=== PATIENT | female | born 1990 | race Caucasian/White ===

== ENCOUNTER → 2020-03-10 | Outpatient (CLI) | payer BC ==
[2020-03-10 13:40] VITALS: BP 190/88; PULSE 114; RESP 18; TEMP 98.4; BMI 41.5
--- NOTE | 2020-03-10 14:23 | P.HPBAR ---
Bariatric H&P - History & Physicial H&P Date: 03/10/20 History & Physicial: Visit/CC: initial visit Patient initial contact: Initial weight: Initial weight in pounds: Height: 5 ft 8 in Initial BMI: Last weight: Current weight: 123.831 kg Current weight in pounds: 273.00 Current BMI: 41.5 [place] body weight (based on NIH guidelines): 63.503 kg Excess body weight loss: The patient is a 29 year-old F who presents for Bariatric Assessment. DATE OF SERVICE: 03/10/2020 REASON FOR CONSULTATION: Initial bariatric evaluation. HISTORY OF PRESENT ILLNESS: Carolin Mir is a 29-year-old female who comes in with lifelong morbid obesity. She is looking into the sleeve gastrectomy. She is under medical supervised weight loss and started 2 to 3 months ago. She is looking into weight loss surgery. She has tried Adipex, qseamia, topamax. She lost 50+ pounds. Her highest weight is present, 273 pounds. She reports trouble with weight loss in her family including mother and sister. None of her family members has weight loss surgery. She has lower back pain. She has no troubles with sleep. She denies reports of hypertension. She has anxiety. She still has her gallbladder. Her mother had her gallbladder removed. She denies moderate reflux disease and has heartburn and takes a prescription. She takes tums. She denies easy bruising. No reports of blood clots. Her dream is to get to 170 pounds. She had 2 sections. She vaps nicotine. She presents to me first time in consultation for weight loss options. At height of 5 feet 8 inches, her ideal body weight is 163 pounds. She comes in 272 pounds. Her body mass index is 41.5. She is 109 pounds overweight. PAST MEDICAL HISTORY: 1. Morbid obesity due to excess calories 2. Body mass index of 41.5, initial 3. Anxiety 4. Depressive disorder 5. Gastroesophageal reflux disease PAST SURGICAL HISTORY: 1. section HOME MEDICATIONS: Home Medications Medication Instructions Recorded Confirmed Ergocalciferol (Vitamin D2) 1,200 mg PO DAILY 02/13/20 03/11/20 [Vitamin D2] Loratadine [Claritin] 10 mg PO DAILY 02/13/20 03/11/20 Multivitamin [Multivitamins Adult 1 tab PO DAILY 02/13/20 03/11/20 Gummies] Venlafaxine HCl [Effexor XR] 150 mg PO DAILY 02/13/20 03/11/20 Venlafaxine HCl [Effexor] 75 mg PO HS 02/13/20 03/11/20 busPIRone HCL [Buspar] 7.5 mg PO BID 02/13/20 03/11/20 Famotidine [Pepcid] 20 mg PO BID 03/11/20 03/11/20 ALLERGIES: Allergies Allergy/AdvReac Type Severity Reaction Status Date / Time metronidazole [From Flagyl] Allergy Rash/Hives Verified 03/11/20 09:05 SOCIAL HISTORY: Past tobacco use. FAMILY HISTORY: No family history of ulcerative colitis disease or Crohn's disease. Family history of morbid obesity. No lupus in the family. No reports of stomach or esophageal cancer. REVIEW OF ORGAN SYSTEMS: CONSTITUTIONAL: At height of 5 feet 8 inches, her ideal body weight is 163 pounds. She comes in 272 pounds. Her body mass index is 41.5. She is 109 pounds overweight. HEENT: Denies any active troubles with vision or hearing. ENDOCRINE: No diabetes. No hypothyroidism. CARDIOVASCULAR: Denies past reports of palpitations or heart attacks or chest pain. RESPIRATORY: Denies daytime somnolence. Denies asthma. GASTROINTESTINAL: Denies any bright red blood per rectum. No diarrhea. No constipation. Gastroesophageal reflux disease. MUSCULOSKELETAL: Has lower back pain and joint pain. Has osteoarthritis of the knees. NEURO: No headaches. No seizure disorders. PSYCH: Has depression. No suicidal ideation. RHEUMATOLOGIC: No lupus. No rheumatoid arthritis. HEMATOLOGIC: Denies any abnormal bleeding or bruising. No personal history of DVTs. SKIN: No rash. No skin cancer. PHYSICAL EXAM: VITAL SIGNS: Height 5 foot 8 inches, weight 272 pounds. BMI 41.5 Vital Signs Temp 98.4 F 03/10/20 13:29 Pulse 114 H 03/10/20 13:29 Resp 18 03/10/20 13:29 BP 190/88 03/10/20 13:29 Pulse Ox GENERAL: Well-developed in no acute distress. HEENT: No scleral icterus. Extraocular movements grossly intact. Hears conversational speech. No nasal drainage. NECK: Supple without lymphadenopathy. CHEST: Nonlabored respirations with equal bilateral excursions. CARDIOVASCULAR: Tachycardia. Distal 2+ pulses. ABDOMEN: Obese, soft, nontender, nondistended. MUSCULOSKELETAL: No clubbing, cyanosis. NEURO: No focal or lateralizing signs. Cranial nerves 2 through 12 grossly within normal limits. PSYCH: Appropriate affect. Alert and oriented to person, place and time. SKIN: Good skin turgor. Well perfused. ASSESSMENT: 1. Morbid obesity due to excess calories 2. Body mass index of 41.5, initial 3. Anxiety 4. Depressive disorder 5. Gastroesophageal reflux disease PLAN: 1. Surgical options including a band, gastric bypass, sleeve gastrectomy were described in detail. Alternatives such as gastric balloon including duodenal switch were described. She is looking into the sleeve gastrectomy. 2. The [place] [facility]ariat[facility] collaborative data and outcomes calculator were described with surgical options. 3. Recommend a bariatric metabolic panel to evaluate for micro- including macronutrient deficiencies. 4. For history of daytime somnolence, recommend evaluation and treatment for sleep apnea. 5. Dietary surveillance and counseling was reviewed. Increased protein intake over 65 grams daily advised. 6. Will need cardiac risk assessment. 7. Recommend medical risk assessment. 8. Psych assessment per insurance guidelines. 9. Recommend upper endoscopy. 10. Recommend 12-lead EKG. 11. Will need complete nicotine avoidance. Thank you for this consultation. Past Medical History Past Medical History: GERD/Reflux Additional Past Medical History / Comment(s): PCOS History of Any Multi-Drug Resistant Organisms: None Reported Past Surgical History: Section Additional Past Surgical History / Comment(s): c section x 2 Past Anesthesia/Blood Transfusion Reactions: No Reported Reaction Past Psychological History: Anxiety, Depression Smoking Status: Vaper Past Alcohol Use History: Occasional Past Drug Use History: None Reported Surgical - Exam Vital Signs Temp Pulse Resp BP 98.4 F 114 H 18 190/88 03/10/20 13:29 03/10/20 13:29 03/10/20 13:29 03/10/20 13:29 Results - Labs 03/10/20 14:59 03/10/20 14:59 Bariatric Checklist Checklist: Plan: Checklist: EGD: 1. Hiatal hernia: 2. H. Pylori: HgbA1c: Vitamin D: Smoking: Primary care physician referral: Dr. Alex Pisano Psychiatry clearance: Cardiology clearance: Sleep study: Diet journal: VTE risk score: VTE risk level: Rehab needs at discharge:
[2020-03-10 15:25] LABS: HGB 13.9 gm/dL (11.4-16.0); MCH 29.6 pg (25.0-35.0); MCHC 33.1 g/dL (31.0-37.0); MCV 89.4 fL (80.0-100.0); Mean Platelet Volume 7.8; Platelet Count 343 k/uL (150-450); RBC 4.69 m/uL (3.80-5.40); RDW 12.6 % (11.5-15.5); WBC 12.4 k/uL (3.8-10.6)
[2020-03-10 18:50] LABS: % Iron Saturation 12.94 (12.00-45.00); African American GFR (CKD) 149.5 (60.0-200.0); Albumin 4.5 g/dL (3.80-4.90); Albumin/Globulin Ratio 1.8 (1.60-3.17); Anion Gap 7.1 mmol/L (4.00-12.00); Calcium 9.6 mg/dL (8.7-10.3); Carbon Dioxide 27.9 mmol/L (21.6-31.8); Chol/HDL Ratio 3.05; Globulin 2.5 g/dL (1.6-3.3); LDL Cholesterol,Calculated 86.4 mg/dL (0.0-131.0); Magnesium 2.1 mg/dL (1.5-2.4); Phosphorus 2.9 mg/dL (2.4-5.1); Total Bilirubin 0.2 mg/dL (0.3-1.2); VLDL Calculation 34.6 mg/dL (5.00-40.00)
[2020-03-10 18:58] LABS: Ferritin 24.7 ng/mL (10.0-291.0)
[2020-03-10 19:20] LABS: Hemoglobin A1C 5.2 % (4.0-6.0)
[2020-03-10 19:43] LABS: Folate, Serum 18.7 ng/mL
[2020-03-11 03:29] LABS: INR <0.90 (0.90-1.11); Partial Thromboplastin Time 29.3 sec (23.5-31.0); Prothrombin Time <9.9 sec (9.9-11.9)
[2020-03-11 14:09] LABS: Zinc, Serum 52 ug/dL (60-130)
[2020-03-12 06:15] LABS: Vit B1(Thiamine) 74 ug/L (38-122)
[2020-03-12 06:19] LABS: Vitamin A 50 ug/dL (38-106)
[2020-03-13 00:56] LABS: Selenium 149 mcg/L (63-160)
== END | disposition home or self-care (01) ==
LOC: BARWHC3 13:23
PROVIDERS: ATTEND Surgery Plastic and Reconstructive Surgery
DX: E66.01 Morbid (severe) obesity due to excess calories (principal); F41.8 Other specified anxiety disorders; K21.9 Gastro-esophageal reflux disease without esophagitis; Z68.41 Body mass index [BMI] 40.0-44.9, adult; Z87.891 Personal history of nicotine dependence; Z83.49 Family history of other endocrine, nutritional and metabolic diseases; Z88.8 Allergy status to other drugs, medicaments and biological substances; Z79.899 Other long term (current) drug therapy; E89.1 Postprocedural hypoinsulinemia; D50.8 Other iron deficiency anemias; K90.89 Other intestinal malabsorption; K74.1 Hepatic sclerosis; N19 Unspecified kidney failure; K50.90 Crohn's disease, unspecified, without complications
CPT/HCPCS: 36415; 80053; 80061; 82306; 82525; 82607; 82728; 82746; 83036; 83540; 83550; 83735; 83970; 84100; 84134; 84255; 84425; 84443; 84590; 84630; 85027; 85610; 85730; 93005; 99201

== ENCOUNTER 2020-06-09 08:25 | Day surgery (SDC) | payer BC ==
[2020-06-07 13:57] VITALS: BMI 41.0
[~2020-06-09 08:25] MED LIST: LACTATED RINGERS 1,000 ML IV SCH; LIDOCAINE 1% (10MG/ML) FOR IV START INTRADERMA PRN
--- NOTE | 2020-06-09 08:36 | P.GSHP ---
History of Present Illness H&P Date: 06/09/20 CHIEF COMPLAINT: GERD HISTORY OF PRESENT ILLNESS: The patient is a 29-year-old female who presents reports gastroesophageal reflux disease. Upper endoscopy was offered for further evaluation and management. PAST MEDICAL HISTORY: Please see list. PAST SURGICAL HISTORY: Please see list. MEDICATIONS: Please see list. ALLERGIES: Please see list. SOCIAL HISTORY: No illicit drug use FAMILY HISTORY: No reports of Crohn disease or ulcerative colitis. REVIEW OF ORGAN SYSTEMS: CONSTITUTIONAL: No reports of fevers or chills. GI: Denies any blood in stools or constipation. PHYSICAL EXAM: VITAL SIGNS: Stable GENERAL: Well-developed and pleasant in no acute distress. HEENT: No scleral icterus. Extraocular movements grossly intact. Moist buccal mucosa. NECK: Supple without lymphadenopathy. CHEST: Unlabored respirations. Equal bilateral excursions. CARDIOVASCULAR: Regular rate and rhythm. Distal 2+ pulses. ABDOMEN: Soft, nondistended. MUSCULOSKELETAL: No clubbing, cyanosis, or edema. ASSESSMENT: 1. Gastroesophageal reflux disease PLAN: 1. Recommend proceeding with an upper endoscopy Past Medical History Past Medical History: GERD/Reflux Additional Past Medical History / Comment(s): PCOS History of Any Multi-Drug Resistant Organisms: None Reported Past Surgical History: Section Additional Past Surgical History / Comment(s): c section x 2 Past Anesthesia/Blood Transfusion Reactions: No Reported Reaction Smoking Status: Vaper - Past Family History Mother Family Medical History: No Reported History, Cancer Additional Family Medical History / Comment(s): breast Father Family Medical History: Cancer Additional Family Medical History / Comment(s): brain/lung Medications and Allergies Home Medications Medication Instructions Recorded Confirmed Type Loratadine [Claritin] 10 mg PO DAILY 02/13/20 06/07/20 History Multivitamin [Multivitamins Adult 1 tab PO DAILY 02/13/20 06/07/20 History Gummies] Venlafaxine HCl [Effexor XR] 150 mg PO DAILY 02/13/20 06/07/20 History Venlafaxine HCl [Effexor] 75 mg PO HS 02/13/20 06/07/20 History busPIRone HCL [Buspar] 15 mg PO BID 02/13/20 06/07/20 History Birthcontrol 1 tab PO 1200 06/07/20 06/07/20 History Cholecalciferol (Vitamin D3) 250 mcg PO DAILY 06/07/20 06/07/20 History [Vitamin D3 (5000 Iu)] hydrOXYzine pamoate [Vistaril] 25 mg PO Q8H PRN 06/07/20 06/07/20 History Allergies Allergy/AdvReac Type Severity Reaction Status Date / Time metronidazole [From Flagyl] Allergy Rash/Hives Verified 06/07/20 12:24
[2020-06-09 08:51] VITALS: TEMP 96.9
[2020-06-09] MEDS ORDERED: PROPOFOL 10 MG/ML 20 ML VIAL IV ONE (09:13)
--- NOTE | 2020-06-09 09:28 | P.PCN ---
Date of Procedure: 06/09/20 Description of Procedure: PREOPERATIVE DIAGNOSIS: Gastroesophageal reflux disease. Morbid obesity. POSTOPERATIVE DIAGNOSIS: Morbid obesity. Gastritis. Gastroesophageal reflux disease with erosive esophagitis Duodenitis Hiatal hernia OPERATION: Esophagogastroduodenoscopy with biopsies along antrum. SURGEON: Porsche Gonzalez MD ANESTHESIA: MAC. INDICATIONS: The patient is a 29-year-old female who presents with a history of reflux disease. Benefits and risks of the procedure were described. Informed consent was obtained. DESCRIPTION: The patient was brought into the endoscopy suite and laid in the left lateral decubitus position. An Olympus gastroscope was passed along the posterior oropharynx down to the distal esophagus where the squamocolumnar junction was encountered at 37 cm from the incisors. The stomach was entered and no bile reflux was found. Additional findings are listed below. Biopsies with cold forceps were obtained of the antrum. The first through third portion of the duodenum was examined and remarkable for duodenitis. Retroflexion of the scope confirmed Hill grade 3 lower esophageal valve. The squamocolumnar junction demonstrated LA grade B erosive esophagitis. The stomach was desufflated. The patient tolerated the procedure well. FINDINGS: Squamocolumnar junction 37 cm from the incisors. Diaphragmatic hiatus at 38 cm. Hiatal hernia, 1 cm, sliding type Hill grade 3 lower esophageal valve. LA grade B erosive esophagitis. Active duodenitis. Chronic gastritis RECOMMENDATIONS: Upper endoscopy as needed. Plan - Discharge Summary Discharge Rx Participant: No New Discharge Prescriptions: Continue Venlafaxine HCl [Effexor XR] 150 mg PO DAILY Venlafaxine HCl [Effexor] 75 mg PO HS busPIRone HCL [Buspar] 15 mg PO BID Multivitamin [Multivitamins Adult Gummies] 1 tab PO DAILY Loratadine [Claritin] 10 mg PO DAILY Cholecalciferol (Vitamin D3) [Vitamin D3 (5000 Iu)] 250 mcg PO DAILY hydrOXYzine pamoate [Vistaril] 25 mg PO Q8H PRN PRN Reason: Anxiety Birthcontrol 1 tab PO 1200 Discharge Medication List Loratadine [Claritin] 10 mg PO DAILY 02/13/20 [History] Multivitamin [Multivitamins Adult Gummies] 1 tab PO DAILY 02/13/20 [History] Venlafaxine HCl [Effexor XR] 150 mg PO DAILY 02/13/20 [History] Venlafaxine HCl [Effexor] 75 mg PO HS 02/13/20 [History] busPIRone HCL [Buspar] 15 mg PO BID 02/13/20 [History] Birthcontrol 1 tab PO 1200 06/07/20 [History] Cholecalciferol (Vitamin D3) [Vitamin D3 (5000 Iu)] 250 mcg PO DAILY 06/07/20 [History] hydrOXYzine pamoate [Vistaril] 25 mg PO Q8H PRN 06/07/20 [History] [facility] up [facility]ment[facility] [place] [facility] Patient Instructions/Handouts: Gastritis (DC), Duodenitis (DC), Diet for Stomach Ulcers and Gastritis (ED), Gastroesophageal Reflux Disease (DC) Discharge Disposition: HOME SELF-CARE
[2020-06-09 09:32] VITALS: PULSE 90; RESP 18
[2020-06-09 10:06] VITALS: BP 146/92
== END 2020-06-09 10:15 | disposition home or self-care (01) ==
LOC: ORWHC2ENDO 08:25
PROVIDERS: ATTEND Surgery Plastic and Reconstructive Surgery
DX: K29.50 Unspecified chronic gastritis without bleeding (principal); K29.80 Duodenitis without bleeding; K44.9 Diaphragmatic hernia without obstruction or gangrene; K21.00 Gastro-esophageal reflux disease with esophagitis, without bleeding; K22.10 Ulcer of esophagus without bleeding; E66.01 Morbid (severe) obesity due to excess calories; Z79.899 Other long term (current) drug therapy; Z88.1 Allergy status to other antibiotic agents; Z98.891 History of uterine scar from previous surgery; Z87.891 Personal history of nicotine dependence; E28.2 Polycystic ovarian syndrome; Z80.3 Family history of malignant neoplasm of breast; Z80.1 Family history of malignant neoplasm of trachea, bronchus and lung; Z80.8 Family history of malignant neoplasm of other organs or systems; Z68.41 Body mass index [BMI] 40.0-44.9, adult
CPT/HCPCS: 81025; 88305; 43239; J2704

== ENCOUNTER → 2020-06-23 | Outpatient (CLI) | payer BC ==
[2020-06-23 13:58] VITALS: BP 160/94; PULSE 103; RESP 16; TEMP 98; BMI 41.8
--- NOTE | 2020-06-23 14:32 | P.PN ---
Subjective Progress Note Date: 06/23/20 She comes in following her upper endoscopy. She is tolerating Omeprazole. She is no longer getting heartburn. Risks to sleeve described. Willingness to take Omeprazole. Scope reviewed. EGD. Zinc for correction. Vitamin D. Objective - Vital Signs Vital signs: Vital Signs Temp 98 F 06/23/20 13:55 Pulse 103 H 06/23/20 13:55 Resp 16 06/23/20 13:55 BP 160/94 06/23/20 13:55 Pulse Ox Intake & Output 06/22/20 06/23/20 06/23/20 18:59 06:59 18:59 Weight 124.738 kg
== END ==
LOC: BARWHC3 13:13
PROVIDERS: ATTEND Surgery Plastic and Reconstructive Surgery
DX: E66.01 Morbid (severe) obesity due to excess calories (principal); Z68.41 Body mass index [BMI] 40.0-44.9, adult; F17.290 Nicotine dependence, other tobacco product, uncomplicated
CPT/HCPCS: 99211

== ENCOUNTER → 2020-07-19 | Outpatient (CLI) | payer BC ==
[2020-07-19 13:19] VITALS: BMI 42.7
== END ==
LOC: BARWHC3 08:43
PROVIDERS: ATTEND Surgery Plastic and Reconstructive Surgery
DX: E66.01 Morbid (severe) obesity due to excess calories (principal); Z71.3 Dietary counseling and surveillance; Z68.41 Body mass index [BMI] 40.0-44.9, adult
CPT/HCPCS: 97804

== ENCOUNTER → 2020-08-30 | Outpatient (CLI) | payer BC ==
[2020-08-30 10:05] LABS: Basophils % (A) 0 %; Eosinophils # (A) 0.1 k/uL (0-0.7); Eosinophils % (A) 1 %; Lymphocytes # (A) 1.7 k/uL (1.0-4.8); Lymphocytes % (A) 18 %; MCH 29.2 pg (25.0-35.0); MCHC 33.3 g/dL (31.0-37.0); MCV 87.9 fL (80.0-100.0); Mean Platelet Volume 7.8; Monocytes # (A) 0.5 k/uL (0-1.0); Monocytes % (A) 6 %; Neutrophils # (A) 7.1 k/uL (1.3-7.7); Neutrophils % (A) 74 %; Platelet Count 319 k/uL (150-450); RBC 4.78 m/uL (3.80-5.40); RDW 13.1 % (11.5-15.5); WBC 9.5 k/uL (3.8-10.6)
[2020-08-30 10:14] LABS: ALT 33 U/L (4-34); AST 29 U/L (14-36); African American GFR (CKD) >90 (>60 ml/min/1.73 sqM); Albumin 4.5 g/dL (3.5-5.0); Alkaline Phosphatase 92 U/L (38-126); Anion Gap 9 mmol/L; Blood Urea Nitrogen 14 mg/dL (7-17); Calcium 9.8 mg/dL (8.4-10.2); Carbon Dioxide 30 mmol/L (22-30); Chloride 102 mmol/L (98-107); Glucose 103 mg/dL (74-99); Non-African American GFR(CKD) >90 (>60 ml/min/1.73 sqM); Potassium 4.3 mmol/L (3.5-5.1); Sodium 141 mmol/L (137-145); Total Bilirubin 0.4 mg/dL (0.2-1.3); Total Protein 7.6 g/dL (6.3-8.2)
[2020-09-02 08:09] LABS: Anabasine Urine <2.0 ng/mL (<2.0)
== END | disposition home or self-care (01) ==
LOC: LABPAT 09:03
PROVIDERS: ATTEND Surgery Plastic and Reconstructive Surgery
DX: Z01.812 Encounter for preprocedural laboratory examination (principal); Z71.51 Drug abuse counseling and surveillance of drug abuser
CPT/HCPCS: 36415; 80053; 80323; 85025; 86850; 86900; 86901

== ENCOUNTER 2020-09-06 07:30 | Inpatient (IN) | payer BC ==
[~2020-09-06 07:30] MED LIST changes: +CHLORHEXIDINE GLUCONATE 15 ML CUP MUCOUS MEM PRN; +DEXAMETHASONE SOD PHOSPHATE 4 MG/ML 1 ML VIAL IV ONE; +ENOXAPARIN 40 MG/0.4 ML SYRINGE SQ PRN; -LACTATED RINGERS 1,000 ML IV SCH; -LIDOCAINE 1% (10MG/ML) FOR IV START INTRADERMA PRN; +MIDAZOLAM 2 MG/2 ML VIAL IV PRN; +ONDANSETRON 4 MG/2 ML VIAL IVP ONE; +PANTOPRAZOLE 40 MG/10 ML VIAL IVP PRN; +SCOPOLAMINE 1.5MG/72HR PATCH TRANSDERM ONE; +ceFAZolin 3 GM in SODIUM CHLORIDE 0.9% 100 ML IVPB PRN
[2020-09-06] MEDS ORDERED: ACETAMINOPHEN TAB 500 MG TAB PO PRN (08:19)
[2020-09-06] MEDS ORDERED: SCOPOLAMINE 1.5MG/72HR PATCH TRANSDERM PRN (08:19)
[2020-09-06] MEDS ORDERED: GABAPENTIN 300 MG CAP PO PRN (08:19)
--- NOTE | 2020-09-06 08:19 | P.GSHP ---
History of Present Illness H&P Date: 09/06/20 CHIEF COMPLAINT: Morbid obesity HISTORY OF PRESENT ILLNESS: Carolin Mir is a 29-year-old female who comes in with lifelong morbid obesity. She is looking into the sleeve gastrectomy. She has completed medical supervised weight loss. She is looking for surgical weight loss. At height of 5 feet 8 inches, her ideal body weight is 163 pounds. Highest 273 pounds, BMI 41.8. She comes in 274 pounds from 272 pounds, 4 months ago. She has gained 2 pounds in 4 months. Her body mass index is 41.8. She is 111 pounds overweight. PAST MEDICAL HISTORY: 1. Morbid obesity due to excess calories 2. Body mass index of 41.5, initial 3. Anxiety 4. Depressive disorder 5. Gastroesophageal reflux disease PAST SURGICAL HISTORY: 1. section HOME MEDICATIONS: Home Medications Medication Instructions Recorded Confirmed Loratadine [Claritin] 10 mg PO DAILY 02/13/20 07/19/20 Multivitamin [Multivitamins Adult 1 tab PO DAILY 02/13/20 07/19/20 Gummies] Venlafaxine HCl [Effexor XR] 150 mg PO DAILY 02/13/20 07/19/20 Venlafaxine HCl [Effexor] 75 mg PO HS 02/13/20 07/19/20 busPIRone HCL [Buspar] 7.5 mg PO BID 02/13/20 07/19/20 Birthcontrol 1 tab PO 1200 06/07/20 07/19/20 Cholecalciferol (Vitamin D3) 500 mcg PO DAILY 06/07/20 07/19/20 [Vitamin D3 (5000 Iu)] hydrOXYzine pamoate [Vistaril] 25 mg PO Q8H PRN 06/07/20 07/19/20 Omeprazole [PriLOSEC] 20 mg PO BID 07/19/20 07/19/20 ALLERGIES: Allergies Allergy/AdvReac Type Severity Reaction Status Date / Time metronidazole [From Flagyl] Allergy Rash/Hives Verified 07/19/20 10:33 SOCIAL HISTORY: Past tobacco use. FAMILY HISTORY: No family history of ulcerative colitis disease or Crohn's disease. Family history of morbid obesity. No lupus in the family. No reports of stomach or esophageal cancer. REVIEW OF ORGAN SYSTEMS: CONSTITUTIONAL: At height of 5 feet 8 inches, her ideal body weight is 163 pounds. She comes in 273 pounds. Her body mass index is 41.6. She is 111 pounds overweight. HEENT: Denies any active troubles with vision or hearing. ENDOCRINE: No diabetes. No hypothyroidism. CARDIOVASCULAR: Denies past reports of palpitations or heart attacks or chest pain. RESPIRATORY: Denies daytime somnolence. Denies asthma. GASTROINTESTINAL: Denies any bright red blood per rectum. No diarrhea. No constipation. Gastroesophageal reflux disease. MUSCULOSKELETAL: Has lower back pain and joint pain. Has osteoarthritis of the knees. NEURO: No headaches. No seizure disorders. PSYCH: Has depression. No suicidal ideation. RHEUMATOLOGIC: No lupus. No rheumatoid arthritis. HEMATOLOGIC: Denies any abnormal bleeding or bruising. No personal history of DVTs. SKIN: No rash. No skin cancer. PHYSICAL EXAM: VITAL SIGNS: Height 5 foot 8 inches, weight 274 pounds. BMI 41.8 GENERAL: Well-developed in no acute distress. HEENT: No scleral icterus. Extraocular movements grossly intact. Hears conversational speech. No nasal drainage. NECK: Supple without lymphadenopathy. CHEST: Nonlabored respirations with equal bilateral excursions. CARDIOVASCULAR: Tachycardia. Distal 2+ pulses. ABDOMEN: Obese, soft, nontender, nondistended. MUSCULOSKELETAL: No clubbing, cyanosis. NEURO: No focal or lateralizing signs. Cranial nerves 2 through 12 grossly within normal limits. PSYCH: Appropriate affect. Alert and oriented to person, place and time. SKIN: Good skin turgor. Well perfused. ASSESSMENT: 1. Morbid obesity due to excess calories 2. Body mass index of 41.5, initial 3. Anxiety 4. Depressive disorder 5. Gastroesophageal reflux disease 6. Hiatal hernia PLAN: 1. She has gastroesophageal reflux disease. Risks of sleeve gastrectomy described including increased gastroesophageal reflux disease. 2. Inpatient hospitalization described Past Medical History Past Medical History: GERD/Reflux Additional Past Medical History / Comment(s): past hx migraines, hiatal hernia, Polycystic ovarian syndrome, History of Any Multi-Drug Resistant Organisms: None Reported Past Surgical History: Section Additional Past Surgical History / Comment(s): c section x 2 Past Anesthesia/Blood Transfusion Reactions: Motion Sickness Smoking Status: Former smoker, Vaper - Past Family History Mother Family Medical History: Cancer Additional Family Medical History / Comment(s): breast Father Family Medical History: Cancer Additional Family Medical History / Comment(s): brain/lung Medications and Allergies Home Medications Medication Instructions Recorded Confirmed Type Loratadine [Claritin] 10 mg PO DAILY 02/13/20 09/02/20 History Multivitamin [Multivitamins Adult 1 tab PO DAILY 02/13/20 09/02/20 History Gummies] Venlafaxine HCl [Effexor XR] 150 mg PO QAM 02/13/20 09/02/20 History Venlafaxine HCl [Effexor] 75 mg PO HS 02/13/20 09/02/20 History busPIRone HCL [Buspar] 7.5 mg PO BID 02/13/20 09/02/20 History Cholecalciferol (Vitamin D3) 10,000 mcg PO DAILY 06/07/20 09/02/20 History [Vitamin D3 (5000 Iu)] hydrOXYzine pamoate [Vistaril] 25 mg PO Q8H PRN 06/07/20 09/02/20 History Omeprazole [PriLOSEC] 20 mg PO BID 07/19/20 09/02/20 History Calcium Citrate(Dose Unknown) 1 tab PO BID 09/02/20 09/02/20 History LORazepam [Ativan] 0.5 mg PO DAILY PRN 09/02/20 09/02/20 History Norgestimate-Ethinyl Estradiol 1 each PO 1200 09/02/20 09/02/20 History [Tri-Sprintec Tablet] Allergies Allergy/AdvReac Type Severity Reaction Status Date / Time metronidazole [From Flagyl] Allergy Rash/Hives Verified 09/02/20 08:24
[2020-09-06] MEDS ORDERED: LIDOCAINE 1% (10MG/ML) FOR IV START INTRADERMA ONE (10:45)
[2020-09-06] MEDS: LACTATED RINGERS 1,000 ML IV SCH (10:45)
--- NOTE | 2020-09-06 12:19 | P.HPADDEND ---
H&P Addendum H&P Addendum Date: 09/06/20 1. Bariatric options between a sleeve, band and a Tana-en-Y gastric bypass were reviewed in detail. The patient elected for a sleeve gastrectomy. Robotic assisted approach described. 2. The [place] [facility] Data was also reviewed with benefits and risks as described. 3. An 8 page second-generation bariatric consent form was reviewed in detail including potential of bleeding, infection, leaks, adequate weight loss, nutritional deficiencies which the patient demonstrated understanding of the risks. 4. A 2 week high-protein low caloric 800 kcal diet described to address hepatomegaly has been completed. 5. Preoperative labs including complete metabolic panel and CBC with type and screen recommended. 6. DVT prophylaxis per [place] [facility]ariat[facility] collaborative. 7. Antibiotic prophylaxis. 8. Inpatient hospitalization anticipated for more than 2 nights. 9. All questions and concerns were addressed with the patient. 10. She is at elevated risk for perioperative complications especially bleeding with Effexor and Lovenox. 11. Overall, patient has expressed understanding of bariatric care including postoperative diet and commitment of lifestyle. Patient should benefit from surgical intervention for correction of her morbid obesity.
[2020-09-06] MEDS ORDERED: PROPOFOL 10 MG/ML 20 ML VIAL IV ONE (12:28)
[2020-09-06] MEDS ORDERED: KETAMINE 10 MG/ML 20 ML VIAL ONE (12:28)
[2020-09-06] MEDS ORDERED: GLYCOPYRROLATE 0.2 MG/ML 2 ML VIAL ONE (12:28)
[2020-09-06] MEDS ORDERED: MIDAZOLAM 2 MG/2 ML VIAL ONE (12:28)
[2020-09-06] MEDS ORDERED: NEOSTIGMINE 1 MG/ML 10 ML VIAL ONE (12:28)
[2020-09-06] MEDS ORDERED: PHENYLEPHRINE-0.9% NACL SYG 1,000 MCG/10 ML SYRINGE ONE (12:28)
[2020-09-06] MEDS ORDERED: HYDROmorphone (PF) 1 MG/ML ONE (12:28)
[2020-09-06] MEDS ORDERED: fentaNYL (PF) 50 MCG/ML 2 ML AMP ONE (12:28)
[2020-09-06] MEDS ORDERED: LIDOCAINE 1% INJ 10MG/ML (20 ML MDV) ONE (12:28)
[2020-09-06] MEDS ORDERED: ROCURONIUM 10 MG/ML (5 ML VIAL) IV ONE (12:28)
[2020-09-06] MEDS ORDERED: BUPIVACAIN-EPI 0.5%-1:200,000 30 ML VIAL SQ ONE (12:50)
[2020-09-06] MEDS ORDERED: LACTATED RINGERS 1,000 ML IV ONE (13:01)
--- NOTE | 2020-09-06 14:15 | P.OP ---
Date of Procedure: 09/06/20 Description of Procedure: SURGEON: DANIEL HAM MD PREOPERATIVE DIAGNOSES: 1. Morbid obesity due to excess calories 2. Body mass index of 41.5, initial 3. Anxiety 4. Depressive disorder 5. Gastroesophageal reflux disease 6. Hiatal hernia 7. Osteoarthritis of the knees 8. Osteoarthritis of the back POSTOPERATIVE DIAGNOSES: 1. Morbid obesity due to excess calories 2. Body mass index of 41.5, initial 3. Anxiety 4. Depressive disorder 5. Gastroesophageal reflux disease 6. Hiatal hernia 7. Osteoarthritis of the knees 8. Osteoarthritis of the back OPERATION: 1. Robotic assisted daVinci Xi laparoscopic sleeve gastrectomy with 40-Arabic bougie, multiport. 2. Intraoperative esophagogastroduodenoscopy. ANESTHESIA: Gen. local anesthetic ESTIMATED BLOOD LOSS: 5 mL SPECIMENS REMOVED: Sleeve gastrectomy COMPLICATIONS: None. FINDINGS: 1. Negative intraoperative esophagogastrojejunoscopy leak test. 2. Mild hepatomegaly and no large hiatus hernia. 3. Total of 7 staplers used including 2 - 60 mm green robot selma and 5 - 60 mm blue robot loads used to create the gastric sleeve. 4. Sleeve gastrectomy, 25 x 5 cm INDICATIONS: Carolin Mir is a 29-year-old female who comes in with lifelong morbid obesity. She is looking into the sleeve gastrectomy. She has completed medical supervised weight loss. She is looking for surgical weight loss. At height of 5 feet 8 inches, her ideal body weight is 163 pounds. Highest 273 pounds, BMI 41.8. She comes in 262 pounds from 274 pounds, 2 months ago. She has lost 12 pounds in 2 months. Her body mass index is 40.0 She is 100 pounds overweight. All surgical options for morbid obesity had been described using the [place] bariatric surgery collaborative comorbidity resolution including complication risk score. A second-generation bariatric consent form was described in detail including the possibility of protein malnutrition, leaks, gastric stricture, venous thrombosis, gastroesophageal reflux disease, need for further surgery for which she demonstrated understanding. Benefits and risks of the procedure were described at length. Informed consent was obtained. DESCRIPTION: The patient was brought into the operating room theater. Preoperatively she had received Lovenox subcutaneously for DVT prophylaxis. Additionally she had Peridex oral solution as an oral decontaminant. After general induction, the abdomen was prepped and draped in standard sterile fashion. An Ioban draping was placed along the abdomen. A robotic da Caterina Xi system was prepped and primed. At 15 cm from the xiphoid, proposed port sites were marked with indelible marker along the anterior axillary line bilaterally, mid axillary line bilaterally with each ports were marked 10 to 15 cm from each other. The media assistant port was marked along the left lateral abdominal wall. The robotic stapler port was zina ed for the right midclavicular line. A 5 mm 0 degrees laparoscopic trocar entry was performed along the left upper quadrant. The abdomen was insufflated to 15 mmHg pressure was tolerated well. Diagnostic laparoscopy demonstrated no injury to bowel, viscera, or mesentery. No evidence of large hiatus hernia was identified. The liver edge had mild hepatomegaly despite her 2 week low-carb high-protein diet. A 8 mm port was placed along the left upper abdominal wall after exchanging the 5 mm port. A separate 8 mm port was placed along the left lateral abdominal wall. Please note that the ports were placed at least 20 cm away from the target anatomy. Care was taken to check each robotic arms were safely away from collision with the bed or the patient. At the epigastrium, a medium sized Dora liver retractor was placed under direct visualization with the [employer] P[employer] Making Machine Operator placed under the right shoulder of the patient. Next, 12-mm robot stapler port was placed along the right upper qu adrant. The camera 8-mm port was maintained along the epigastrium. The patient was repositioned in reverse Trendelenburg position at 21-degrees after lowering the bed. The robot was docked along the left side of the patient. Using a grasper for arm 4, a vessel sealer for arm 3, including grasper for arm 1, the robotic system was docked and primed as described. Instruments were interchanged by the media assistant for stapler loads. The camera was placed at 30- degrees down. I had sat at the console. The pylorus was identified and 6 cm proximally along the greater curvature of the stomach, the short gastrics were mobilized upwards to the angle of His using a vessel sealer. Hemostasis was excellent during this portion of the procedure. Next, the upper pole of the stomach was adherent to the left sydney, which was gently dissected free using atraumatic grasper. I went to the head of the bed and placed 40-Arabic blunt bougie into the stomach. The bougie was readjusted by the nurse tube sizer and cutter operator. Robotic stapler green load 60 mm 2 followed by blue 60 mm x 5 loads were used to create the sleeve. Initial firing was across the antrum of the stomach towards the angle of His. The staple line was linear without corkscrewing. The space from the angularis incisura of the sleeve was approximately 4 cm. I then went to the head of the bed to perform the intraoperative esophagogastroduodenoscopy leak test. The bougie was withdrawn. The upper pole of the stomach was bathed using normal saline solution. The scope was withdrawn with careful inspection along the staple line for which no leaks were found along the entire length. Additionally,the sleeve was completely hemostatic without any encroachment along the angularis incisura. Its topology was a soft "J". No stricture was encountered upon placement of the scope. The GI tract was desufflated. The patient tolerated this portion of the procedure well. The scope was completely withdrawn. The robot was undocked. I then rescrubbed into case, whereby the irrigation fluid was aspirated from the abdominal cavity. Tisseel fibrin sealant was placed along the entire staple length. Once dried the Dora liver retractor was removed. Attention was now brought to removal of the specimen. The distal end of the sleeve gastrectomy specimen was brought out through the 12 mm port at the left upper quadrant. The specimen was gently removed en total. No contamination had occurred during this process. All instruments and pneumoperitoneum including irrigation fluid was removed from the abdominal cavity. The 12 mm port site was closed using 0-Vicryl and Benjy Lamb and irrigated with diluted hydrogen peroxide. The final incisions were closed using subcuticular interrupted suture of 4-0 Monocryl. Exofin was applied to the skin once the skin had been cleansed. OptiFoam dressing was placed along the stomach extraction site. The sleeve specimen was measured and checked also for leaks which none were found. At the end of the procedure, needle, sponge, and instrument count was verified correct by the surgical assistant. The patient was taken to the postanesthesia care unit in stable condition. She had tolerated the procedure well. Intraoperative films and findings were reviewed with the patient's family.
[2020-09-06] MEDS ORDERED: diphenhydrAMINE 50 MG/ML 1 ML VIAL IVP ONE (14:18)
[2020-09-06] MEDS ORDERED: LORazepam 0.5 MG TAB PO PRN (14:22)
[2020-09-06] MEDS ORDERED: NALOXONE 0.4 MG/ML 1 ML VIAL IV PRN (14:23)
[2020-09-06] MEDS ORDERED: diphenhydrAMINE 50 MG/ML 1 ML VIAL IVP PRN (14:23)
[2020-09-06] MEDS: HYDROmorphone 0.5 MG/0.5 ML SYRINGE IVP PRN ×2 (14:26→14:31)
[2020-09-06] MEDS ORDERED: SODIUM CHLORIDE 0.9% 2,000 ML IV ONE (14:26)
[2020-09-06] MEDS ORDERED: ONDANSETRON 4 MG/2 ML VIAL IVP PRN (14:26)
[2020-09-06] MEDS ORDERED: DEXAMETHASONE SOD PHOSPHATE 10 MG/ML 1 ML VIAL IV PRN (14:26)
[2020-09-06] MEDS ORDERED: MIDAZOLAM 2 MG/2 ML VIAL IVP ONE (14:39)
[2020-09-06] MEDS ORDERED: SODIUM CHLORIDE 0.9% 1,000 ML IV ONE (14:47)
[2020-09-06] MEDS: ALBUTEROL NEBULIZED 2.5 MG/3 ML INHALATION SCH ×2 (16:41→21:46)
[2020-09-06] MEDS: HYOSCYAMINE ORAL DROPS 1.875 MG/15 ML BOTTLE PO SCH ×2 (17:42→23:27)
[2020-09-06] MEDS: DEXAMETHASONE SOD PHOSPHATE 4 MG/ML 1 ML VIAL IV SCH ×2 (17:43→23:22)
[2020-09-06] MEDS: ACETAMINOPHEN IV (For NPO) 1,000 MG in EMPTY BAG 1 BAG IVPB SCH ×2 (17:43→23:22)
[2020-09-06] MEDS: SIMETHICONE 40 MG/0.6 ML DROPS 2,000 MG/30 ML BOTTLE PO SCH ×2 (17:57→23:27)
[2020-09-06] MEDS ORDERED: SIMETHICONE 40 MG/0.6 ML DROPS 2,000 MG/30 ML BOTTLE PO SCH (18:00)
[2020-09-06] MEDS: ceFAZolin 3 GM in SODIUM CHLORIDE 0.9% 100 ML IVPB SCH (19:59)
[2020-09-06] MEDS: busPIRone HCl 5 MG TAB PO SCH (20:14)
[2020-09-06] MEDS: VENLAFAXINE HCL 75 MG TAB PO SCH (20:15)
[2020-09-06] MEDS: HYDROmorphone 1 MG/ML 1 ML SYRINGE IVP PRN (20:15)
[2020-09-06] MEDS: 0.9% NACL WITH KCL 20 MEQ/L 1,000 ML IV SCH (23:26)
[2020-09-07] MEDS: 0.9% NACL WITH KCL 20 MEQ/L 1,000 ML IV SCH ×4 (00:20→13:52)
[2020-09-07] MEDS: HYDROmorphone 1 MG/ML 1 ML SYRINGE IVP PRN ×3 (02:25→14:46)
[2020-09-07] MEDS: ceFAZolin 3 GM in SODIUM CHLORIDE 0.9% 100 ML IVPB SCH (03:47)
[2020-09-07] MEDS: ACETAMINOPHEN IV (For NPO) 1,000 MG in EMPTY BAG 1 BAG IVPB SCH ×2 (05:58→12:02)
[2020-09-07] MEDS: HYOSCYAMINE ORAL DROPS 1.875 MG/15 ML BOTTLE PO SCH ×3 (05:59→17:44)
[2020-09-07] MEDS: DEXAMETHASONE SOD PHOSPHATE 4 MG/ML 1 ML VIAL IV SCH ×3 (05:59→17:44)
[2020-09-07] MEDS: SIMETHICONE 40 MG/0.6 ML DROPS 2,000 MG/30 ML BOTTLE PO SCH ×3 (06:00→17:45)
[2020-09-07] MEDS: LACTATED RINGERS 1,000 ML IV SCH (06:02)
[2020-09-07] MEDS: ALBUTEROL NEBULIZED 2.5 MG/3 ML INHALATION SCH ×4 (08:38→20:25)
[2020-09-07] MEDS ORDERED: PANTOPRAZOLE 40 MG/10 ML VIAL IV SCH (09:00)
[2020-09-07] MEDS ORDERED: ENOXAPARIN 40 MG/0.4 ML SYRINGE SQ SCH (09:00)
[2020-09-07] MEDS: busPIRone HCl 5 MG TAB PO SCH ×2 (09:34→20:18)
[2020-09-07] MEDS: VENLAFAXINE HCL ER 150 MG CAP PO SCH ×2 (09:34→10:28)
[2020-09-07] MEDS: LORATADINE 10 MG TAB PO SCH ×2 (09:34→09:43)
[2020-09-07 09:45] LABS: Basophils # (A) 0.01 X 10*3/uL (0.00-0.10); Basophils % (A) 0.1 %; Eosinophils # (A) 0 X 10*3/uL (0.04-0.35); Eosinophils % (A) 0 %; HCT 40.6 % (37.2-46.3); HGB 13.1 g/dL (12.0-15.0); Lymphocytes # (A) 1.33 X 10*3/uL (0.90-5.00); Lymphocytes % (A) 10.6 %; MCH 28.5 pg (27.0-32.0); MCHC 32.3 g/dL (32.0-37.0); MCV 88.5 fL (80.0-97.0); Mean Platelet Volume 12.1 fL (9.5-12.2); Monocytes # (A) 0.65 X 10*3/uL (0.20-1.00); Monocytes % (A) 5.2 %; Neutrophils # (A) 10.45 X 10*3/uL (1.80-7.70); Neutrophils % (A) 83.7 %; Platelet Count 318 X 10*3/uL (140-440); RBC 4.59 X 10*6/uL (4.10-5.20); RDW 13.2 % (11.5-14.5); WBC 12.49 X 10*3/uL (4.50-10.00)
[2020-09-07 11:48] VITALS: BMI 40.0
[2020-09-07] MEDS ORDERED: NORGESTIMATE ETHINYL ESTRADIOL PO SCH (12:00)
--- NOTE | 2020-09-07 12:48 | FL ---
EXAMINATION TYPE: FL UGI DATE OF EXAM: 09/07/2020 LIMITED UGI: CLINICAL HISTORY: Morbid Obesity, lap band placed earlier today. TECHNIQUE: Limited esophagram is performed utilizing 6 oz of Omnipaque 350. A total of 39 seconds of fluoroscopic time was utilized during procedure. COMPARISON: None. FINDINGS: The patient swallowed contrast without difficulty or delay. Esophageal peristalsis and mo tility are within normal limits. There is good flow of contrast along the diaphragmatic hiatus into proximal stomach and subsequent flow into gastric sleeve. There is good flow from distal sleeve into pylorus and duodenal sweep. Patient remains asymptomatic. There is no evidence of contrast extravasat ion to suggest leak. IMPRESSION: No evidence of leak or significant obstruction status post recent gastric sleeve surgery.
[2020-09-07 13:22] LABS: African American GFR (CKD) 139.8 (60.0-200.0); Anion Gap 14.3 mmol/L (4.00-12.00); Calcium 9.1 mg/dL (8.7-10.3); Carbon Dioxide 19.7 mmol/L (21.6-31.8); Magnesium 2.2 mg/dL (1.5-2.4); Non-African American GFR(CKD) 120.6 (60.0-200.0); Phosphorus 3.3 mg/dL (2.4-5.1); Potassium 4.5 mmol/L (3.5-5.5)
[2020-09-07 14:25] VITALS: RESP 18
--- NOTE | 2020-09-07 15:43 | P.PN ---
<HortensiaMely maher - Last Filed: 09/07/20 15:34> Subjective Progress Note Date: 09/07/20 CHIEF COMPLAINT: Morbid obesity HISTORY OF PRESENT ILLNESS: Patient is status post Robotic assisted daVinci Xi laparoscopic sleeve gastrectomy and Intraoperative esophagogastroduodenoscopy. Patient is complaining of pain. The IV Tylenol did not last long enough and she required a dose of IV Dilaudid. She denies any nausea or vomiting. She denies any flatus or BM. Her upper GI showed no evidence of leak or obstruction. White count elevated at 12.49 she did receive dexamethasone and that may have contributed to the leukocytosis. PHYSICAL EXAM: VITAL SIGNS: Reviewed GENERAL: Well-developed in no acute distress. HEENT: No sclera icterus. Extraocular movements grossly intact. Moist buccal mucosa. Head is atraumatic, normocephalic. Hears conversational speech. No nasal drainage. NECK: Supple without lymphadenopathy. CHEST: Non-labored respirations and equal bilateral excursions. CARDIOVASCULAR: Palpable 2+ radial pulses. ABDOMEN: Soft. Nondistended. Incision sites clean dry and intact MUSCULOSKELETAL: No clubbing or cyanosis. NEUROLOGIC: No focal or lateralizing signs. Cranial nerves II through XII g rossly intact. PSYCH: Appropriate affect. Alert and oriented to person, place and time. SKIN: Well perfused. Good skin turgor. ASSESSMENT: 1. Morbid obesity due to excess calories 2. Body mass index of 41.5, initial 3. Anxiety 4. Depressive disorder 5. Gastroesophageal reflux disease 6. Hiatal hernia 7. Osteoarthritis of the knees 8. Osteoarthritis of the back PLAN: -Continue IV fluids -Continue pain medication as needed -Add liquid Tylenol to help with pain -Encourage patient to ambulate -Encourage patient to use incentive spirometer Physician Airport Operations Specialist note has been reviewed by physician. Signing provider agrees with the documented findings, assessment, and plan of care. Objective - Vital Signs Vital signs: Vital Signs Temp 98.4 F 09/07/20 14:00 Pulse 89 09/07/20 14:00 Resp 18 09/07/20 14:00 BP 170/93 09/07/20 14:00 Pulse Ox 98 09/07/20 14:00 Intake & Output 09/06/20 09/07/20 09/07/20 18:59 06:59 18:59 Intake Total 2100 Balance 2100 Weight 119.4 kg 119.4 kg Intake: IV 2100 Other: Voiding Method Toilet # Voids 2 6 - Labs CBC & Chem 7: 09/07/20 05:19 09/07/20 05:19 Labs: Abnormal Lab Results - Last 24 Hours (Table) 09/07/20 09/07/20 Range/Units 05:19 05:19 WBC 12.49 H (4.50-10.00) X 10*3/uL Immature Gran # 0.05 H (0.00-0.04) X 10*3/uL Neutrophils # 10.45 H (1.80-7.70) X 10*3/uL Eosinophils # 0 L (0.04-0.35) X 10*3/uL Carbon Dioxide 19.7 L (21.6-31.8) mmol/L Anion Gap 14.30 H (4.00-12.00) mmol/L BUN 5.0 L (9.0-27.0) mg/dL <Porsche Gonzalez N - Last Filed: 09/07/20 19:24> Subjective Patient re-evaluated this evening. Pain improved. Discharge instructions were reviewed. Patient wishes to be discharged home. Follow-up in the bariatric center in 3 days. Objective - Vital Signs Vital signs: Vital Signs Temp 98.4 F 09/07/20 14:00 Pulse 89 09/07/20 14:00 Resp 18 09/07/20 14:00 BP 170/93 09/07/20 14:00 Pulse Ox 98 09/07/20 14:00 Intake & Output 09/07/20 09/07/20 09/08/20 06:59 18:59 06:59 Weight 119.4 kg Other: Voiding Method Toilet # Voids 6 5 - Labs CBC & Chem 7: 09/07/20 05:19 09/07/20 05:19 Labs: Abnormal Lab Results - Last 24 Hours (Table) 09/07/20 09/07/20 Range/Units 05:19 05:19 WBC 12.49 H (4.50-10.00) X 10*3/uL Immature Gran # 0.05 H (0.00-0.04) X 10*3/uL Neutrophils # 10.45 H (1.80-7.70) X 10*3/uL Eosinophils # 0 L (0.04-0.35) X 10*3/uL Carbon Dioxide 19.7 L (21.6-31.8) mmol/L Anion Gap 14.30 H (4.00-12.00) mmol/L BUN 5.0 L (9.0-27.0) mg/dL Assessment and Plan (1) Body mass index (BMI) of 40.1 to 44.9 in adult Current Visit: Yes Status: Acute Code(s): Z68.41 - BODY MASS INDEX [BMI]40.0-44.9, ADULT SNOMED Code(s): 108748853 (2) Depressive disorder Current Visit: Yes Status: Acute Code(s): F32.9 - MAJOR DEPRESSIVE DISORDER, SINGLE EPISODE, UNSPECIFIED SNOMED Code(s): 79550772 (3) Osteoarthritis of knees, bilateral Current Visit: Yes Status: Acute Code(s): M17.0 - BILATERAL PRIMARY OSTEOARTHRITIS OF KNEE SNOMED Code(s): 941674361539614 (4) Osteoarthritis of lower back Current Visit: Yes Status: Acute Code(s): M47.9 - SPONDYLOSIS, UNSPECIFIED SNOMED Code(s): 817598769 (5) Morbid (severe) obesity due to excess calories Current Visit: No Status: Acute Code(s): E66.01 - MORBID (SEVERE) OBESITY DUE TO EXCESS CALORIES SNOMED Code(s): 946416204
[2020-09-07] MEDS ORDERED: ACETAMINOPHEN ORAL SUSP 160 MG/5 ML CUP PO PRN (18:00)
--- NOTE | 2020-09-07 19:23 | P.DS ---
Providers Date of admission: 09/06/20 10:08 Expected date of discharge: 09/07/20 Attending physician: Porsche Gonzalez Primary care physician: Alex Pisano - Discharge Diagnosis(es) (1) Body mass index (BMI) of 40.1 to 44.9 in adult Current Visit: Yes Status: Acute (2) Depressive disorder Current Visit: Yes Status: Acute (3) Osteoarthritis of knees, bilateral Current Visit: Yes Status: Acute (4) Osteoarthritis of lower back Current Visit: Yes Status: Acute (5) Morbid (severe) obesity due to excess calories Current Visit: No Status: Acute Hospital Course: POSTOPERATIVE DIAGNOSES: 1. Morbid obesity due to excess calories 2. Body mass index of 41.5, initial 3. Anxiety 4. Depressive disorder 5. Gastroesophageal reflux disease 6. Hiatal hernia 7. Osteoarthritis of the knees 8. Osteoarthritis of the back COURSE: Carolin Mir is a 29-year-old female who comes in with lifelong morbid obesity. She underwent robotic sleeve gastrectomy. Esophagus was unremarkable for leak or obstruction. She is tolerating diet. She was ambulating. Pain medication schedule was adjusted. Prior to discharge, patient verbalizes understanding of bariatric discharge instructions including diet. Procedures: OPERATION: 1. Robotic assisted daVinci Xi laparoscopic sleeve gastrectomy with 40-Cypriot bougie, multiport. 2. Intraoperative esophagogastroduodenoscopy. ANESTHESIA: Gen. local anesthetic ESTIMATED BLOOD LOSS: 5 mL SPECIMENS REMOVED: Sleeve gastrectomy COMPLICATIONS: None. FINDINGS: 1. Negative intraoperative esophagogastrojejunoscopy leak test. 2. Mild hepatomegaly and no large hiatus hernia. 3. Total of 7 staplers used including 2 - 60 mm green robot selma and 5 - 60 mm blue robot loads used to create the gastric sleeve. 4. Sleeve gastrectomy, 25 x 5 cm Patient Condition at Discharge: Stable Plan - Discharge Summary Discharge Rx Participant: Yes New Discharge Prescriptions: New bisacodyL [Dulcolax] 5 mg PO DAILY PRN #10 tablet. PRN Reason: Constipation Simethicone 40 mg/0.6 ml Drops [Mylicon Drops] 40 mg PO PCHS PRN #30 ml PRN Reason: Gas Omeprazole [PriLOSEC] 40 mg PO DAILY #30 capsule. Acetaminophen Tab [Tylenol Tab] 1,000 mg PO Q6HR PRN #30 tablet PRN Reason: Pain Ondansetron Odt [Zofran Odt] 4 mg PO Q8HR PRN #9 tab PRN Reason: Nausea Continue Venlafaxine HCl [Effexor XR] 150 mg PO QAM Venlafaxine HCl [Effexor] 75 mg PO HS busPIRone HCL [Buspar] 7.5 mg PO BID Loratadine [Claritin] 10 mg PO DAILY LORazepam [Ativan] 0.5 mg PO DAILY PRN PRN Reason: Anxiety Norgestimate-Ethinyl Estradiol [Tri-Sprintec Tablet] 1 each PO 1200 Discontinued Multivitamin [Multivitamins Adult Gummies] 1 tab PO DAILY Cholecalciferol (Vitamin D3) [Vitamin D3 (5000 Iu)] 10,000 mcg PO DAILY hydrOXYzine pamoate [Vistaril] 25 mg PO Q8H PRN PRN Reason: Anxiety Omeprazole [PriLOSEC] 20 mg PO BID Calcium Citrate(Dose Unknown) 1 tab PO BID Discharge Medication List Loratadine [Claritin] 10 mg PO DAILY 02/13/20 [History] Venlafaxine HCl [Effexor XR] 150 mg PO QAM 02/13/20 [History] Venlafaxine HCl [Effexor] 75 mg PO HS 02/13/20 [History] busPIRone HCL [Buspar] 7.5 mg PO BID 02/13/20 [History] LORazepam [Ativan] 0.5 mg PO DAILY PRN 09/02/20 [History] Norgestimate-Ethinyl Estradiol [Tri-Sprintec Tablet] 1 each PO 1200 09/02/20 [History] Acetaminophen Tab [Tylenol Tab] 1,000 mg PO Q6HR PRN #30 tablet 09/07/20 [Rx] Omeprazole [PriLOSEC] 40 mg PO DAILY #30 capsule. 09/07/20 [Rx] Ondansetron Odt [Zofran Odt] 4 mg PO Q8HR PRN #9 tab 09/07/20 [Rx] Simethicone 40 mg/0.6 ml Drops [Mylicon Drops] 40 mg PO PCHS PRN #30 ml 09/07/20 [Rx] bisacodyL [Dulcolax] 5 mg PO DAILY PRN #10 tablet. 09/07/20 [Rx] Follow up Appointment(s)/Referral(s): [place], [place] [NON-STAFF] - 09/10/20 9:00 am Patient Instructions/Handouts: Nutrition after Bariatric Surgery (DC), Laparoscopic Sleeve Gastrectomy (GEN) Activity/Diet/Wound Care/Special Instructions: Liquid diet only for 2 weeks until September 20 No lifting over 4 pounds in 4 weeks, October 07August Shower. No soaking in bath tubs for 2 weeks until September 20 Please notify your surgeon if you develop nausea and vomiting including new onset of abdominal pain. Continue to use incentive spirometry to prevent pneumonias. Please continue to ambulate at home to prevent blood clots in legs. You have new prescriptions at your local pharmacy. Follow-up at the bariatric center. August shower. Dressings to be discontinued by surgeon in the office. Drink 64 oz of fluid daily. Start protein shakes on . Notify bariatric center for temp over 101.0, increased pain, drainage from incisions. No straws or carbonated beverages. Liquid diet only. Sugar content should be less than 6 g to avoid dumping syndrome. Take MOM for constipation. CRUSH, OPEN, OR CUT TABLETS LARGER THAN A SIZE OF A TIC TAC Discharge Disposition: HOME SELF-CARE
[2020-09-07] MEDS: VENLAFAXINE HCL 75 MG TAB PO SCH (20:18)
[2020-09-07 21:46] VITALS: BP 171/75; PULSE 73; TEMP 98
[2020-09-08] MEDS ORDERED: bisacodyL 5 MG TABLET.DR PO PRN (08:00)
== END 2020-09-07 21:30 | disposition home or self-care (01) | DRG 621 ==
LOC: 2ORMAIN 10:08 → 4SSUR 14:20
PROVIDERS: ADMIT Surgery Plastic and Reconstructive Surgery; ATTEND Surgery Plastic and Reconstructive Surgery
PROC: 8E0W4CZ Robotic Assisted Procedure of Trunk Region, Percutaneous Endoscopic Approach (ICD-10-PCS; 2020-09-06)
PROC: 0DJ08ZZ Inspection of Upper Intestinal Tract, Via Natural or Artificial Opening Endoscopic (ICD-10-PCS; 2020-09-06)
PROC: 0DB64Z3 Excision of Stomach, Percutaneous Endoscopic Approach, Vertical (ICD-10-PCS; principal; 2020-09-06 12:05)
DX: E66.01 Morbid (severe) obesity due to excess calories (principal); R16.0 Hepatomegaly, not elsewhere classified; Z68.41 Body mass index [BMI] 40.0-44.9, adult; K44.9 Diaphragmatic hernia without obstruction or gangrene; K21.9 Gastro-esophageal reflux disease without esophagitis; M17.0 Bilateral primary osteoarthritis of knee; M47.9 Spondylosis, unspecified; F41.9 Anxiety disorder, unspecified; F32.9 Major depressive disorder, single episode, unspecified; Z88.8 Allergy status to other drugs, medicaments and biological substances; Z79.899 Other long term (current) drug therapy; Z87.891 Personal history of nicotine dependence
CPT/HCPCS: 74240; 80051; 81025; 82310; 82565; 83735; 84100; 84520; 85025; 86850; 86900; 86901; 87635; 88307; 94640; 94760; 94762

== ENCOUNTER → 2020-09-10 | Outpatient (CLI) | payer BC ==
[2020-09-10 09:27] VITALS: BP 140/84; PULSE 90; RESP 15; TEMP 98
[2020-09-10] MEDS: SODIUM CHLORIDE 0.9% 1,000 ML IV SCH ×2 (09:30→10:26)
== END ==
LOC: PROCWHC3 09:04
PROVIDERS: ATTEND Surgery Plastic and Reconstructive Surgery
DX: E86.0 Dehydration (principal); Z88.3 Allergy status to other anti-infective agents
CPT/HCPCS: 96360; 96361

== ENCOUNTER → 2020-09-15 | Outpatient (CLI) | payer BC ==
--- NOTE | 2020-09-15 14:10 | P.PN ---
Subjective Progress Note Date: 09/15/20 DATE OF SERVICE: 09/15/2020 CHIEF COMPLAINT: Status post sleeve gastrectomy HISTORY OF PRESENT ILLNESS: Carolin Mir is a 30-year-old female status post sleeve gastrectomy, 09/06/2020. She is 1 week out. She is barely getting not enough protein and is under 75 grams daily. She is barely getting 30 to 40 grams daily. She feels better after IV fluid hydration. She is not keeping a food diary journal. At height of 5 feet 8 inches, her ideal body weight is 163 pounds. Highest 280 pounds, BMI 42.7. She comes in 252 pounds from 255 pounds, 1 week ago. She has lost 3 pounds in 1 week. Her body mass index is 38.5. Lifetime weight loss of 28 pounds. Percent lifetime weight loss of 24%. She is 89 pounds overweight. PHYSICAL EXAM: VITAL SIGNS: Height 5 foot 8 inches, weight 252 pounds. BMI 38.5 Vital Signs Temp 98.1 F 09/15/20 13:56 Pulse 94 09/15/20 13:56 Resp BP 127/83 09/15/20 13:56 Pulse Ox GENERAL: Well-developed in no acute distress. HEENT: No scleral icterus. Extraocular movements grossly intact. Hears conversational speech. No nasal drainage. NECK: Supple without lymphadenopathy. CHEST: Nonlabored respirations with equal bilateral excursions. CARDIOVASCULAR: Distal 2+ pulses. Regular rate and rhythm. ABDOMEN: Obese, soft, nontender. No cellulitis. MUSCULOSKELETAL: No clubbing, cyanosis. NEURO: No focal or lateralizing signs. Cranial nerves 2 through 12 grossly within normal limits. PSYCH: Appropriate affect. Alert and oriented to person, place and time. SKIN: Good skin turgor. Well perfused. ASSESSMENT: 1. Morbid obesity due to excess calories 2. Body mass index of 42.7 initial to 38.5 3. Anxiety 4. Depressive disorder 5. Gastroesophageal reflux disease 6. Status post sleeve gastrectomy 7. Dietary surveillance and counseling. PLAN: 1. She is barely getting not enough protein. 2. Recommend food diary 3. Return to work following adequate protein intake. 4. Recommend protein intake of 75 grams daily.
[2020-09-15 15:02] VITALS: BMI 38.5
[2020-09-16 11:42] VITALS: BP 127/83; PULSE 94; TEMP 98.1
== END ==
LOC: BARWHC3 13:11
PROVIDERS: ATTEND Surgery Plastic and Reconstructive Surgery
DX: E66.01 Morbid (severe) obesity due to excess calories (principal); F41.9 Anxiety disorder, unspecified; K21.9 Gastro-esophageal reflux disease without esophagitis; F32.9 Major depressive disorder, single episode, unspecified; Z98.84 Bariatric surgery status; Z71.3 Dietary counseling and surveillance; Z68.38 Body mass index [BMI] 38.0-38.9, adult
CPT/HCPCS: 97803; 99211

== ENCOUNTER → 2020-09-29 | Outpatient (CLI) | payer BC ==
[2020-09-29 13:43] VITALS: BP 112/77; PULSE 75; RESP 16; TEMP 98.3; BMI 36.8
--- NOTE | 2020-09-29 14:20 | P.PN ---
Subjective Progress Note Date: 09/29/20 DATE OF SERVICE: 09/29/2020 CHIEF COMPLAINT: Status post sleeve gastrectomy HISTORY OF PRESENT ILLNESS: Carolin Mir is a 30-year-old female status post sleeve gastrectomy, 09/06/2020. She is 3 weeks out. She is barely getting 70 grams of protein daily. She is eager to return to work. She denies gastroesophageal reflux disease, nausea or vomiting. She wants to get back to work. At height of 5 feet 8 inches, her ideal body weight is 163 pounds. Highest 280 pounds, BMI 42.7. She comes in 241 pounds from 252 pounds, 2 weeks ago. She has lost 11 pounds in 2 weeks. Her body mass index is 36.8. Lifetime weight loss of 38 pounds. Percent lifetime weight loss of 33%. She is 78 pounds overweight. PHYSICAL EXAM: VITAL SIGNS: Height 5 foot 8 inches, weight 241 pounds. BMI 36.8 Vital Signs Temp 98.3 F 09/29/20 13:41 Pulse 75 09/29/20 13:41 Resp 16 09/29/20 13:41 BP 112/77 09/29/20 13:41 Pulse Ox GENERAL: Well-developed in no acute distress. HEENT: No scleral icterus. Extraocular movements grossly intact. Hears conversational speech. No nasal drainage. NECK: Supple without lymphadenopathy. CHEST: Nonlabored respirations with equal bilateral excursions. CARDIOVASCULAR: Distal 2+ pulses. Regular rate and rhythm. ABDOMEN: Obese, soft, nontender. No hernia. MUSCULOSKELETAL: No clubbing, cyanosis. NEURO: No focal or lateralizing signs. Cranial nerves 2 through 12 grossly within normal limits. PSYCH: Appropriate affect. Alert and oriented to person, place and time. SKIN: Good skin turgor. Well perfused. ASSESSMENT: 1. Morbid obesity due to excess calories 2. Body mass index of 42.7 initial to 36.8 3. Anxiety 4. Depressive disorder 5. Gastroesophageal reflux disease 6. Status post sleeve gastrectomy 7. Dietary surveillance and counseling. PLAN: 1. She is still under her protein intake and barely getting 70 grams daily. Recommend increase protein intake to 80 grams daily. 2. May return to work without restrictions after 4 weeks from her surgery. 3. Recommend bariatric labs. 4. Follow up in November, 3 months post op. Objective - Vital Signs Vital signs: Vital Signs Temp 98.3 F 09/29/20 13:41 Pulse 75 09/29/20 13:41 Resp 16 09/29/20 13:41 BP 112/77 09/29/20 13:41 Pulse Ox Intake & Output 09/28/20 09/29/20 09/29/20 18:59 06:59 18:59 Weight 109.769 kg - Labs CBC & Chem 7: 09/29/20 14:58 09/29/20 14:58
--- NOTE | 2020-09-29 14:23 | P.PN ---
Progress Note - Text Progress Note Date: 09/29/20 To whom it may concern; Carolin Mir is under my surgical care. She may return to work on Sunday, October 04, 2020 without restrictions. Regards, Porsche Gonzalez MD, FACS
[2020-09-29 15:26] LABS: HCT 38.8 % (34.0-46.0); HGB 13.7 gm/dL (11.4-16.0); MCH 30.3 pg (25.0-35.0); MCHC 35.4 g/dL (31.0-37.0); MCV 85.7 fL (80.0-100.0); Mean Platelet Volume 9.7; Platelet Count 213 k/uL (150-450); RBC 4.53 m/uL (3.80-5.40); RDW 13.1 % (11.5-15.5); WBC 8.2 k/uL (3.8-10.6)
[2020-09-29 15:35] LABS: Partial Thromboplastin Time 25.9 sec (22.0-30.0)
[2020-09-29 20:13] LABS: Hemoglobin A1C 5.3 % (4.0-6.0)
[2020-09-29 21:17] LABS: % Iron Saturation 23.43 (12.00-45.00); African American GFR (CKD) 113.1 (60.0-200.0); Albumin 4.6 g/dL (3.80-4.90); Albumin/Globulin Ratio 1.77 (1.60-3.17); Anion Gap 12.9 mmol/L (4.00-12.00); Calcium 9.6 mg/dL (8.7-10.3); Carbon Dioxide 26.1 mmol/L (21.6-31.8); Chol/HDL Ratio 4.42; Globulin 2.6 g/dL (1.6-3.3); LDL Cholesterol,Calculated 81.2 mg/dL (0.0-131.0); Magnesium 1.7 mg/dL (1.5-2.4); Non-African American GFR(CKD) 97.6 (60.0-200.0); Phosphorus 4.2 mg/dL (2.4-5.1); Potassium 2.9 mmol/L (3.5-5.5); Total Bilirubin 0.5 mg/dL (0.3-1.2); Total Protein 7.2 g/dL (6.2-8.2); VLDL Calculation 24.8 mg/dL (5.00-40.00)
[2020-09-29 21:43] LABS: Ferritin 89.7 ng/mL (10.0-291.0)
[2020-09-29 23:23] LABS: Folate, Serum 13.2 ng/mL
[2020-09-30 14:13] LABS: Zinc, Serum 62 ug/dL (60-130)
[2020-10-01 06:49] LABS: Vitamin A 39 ug/dL (38-106)
[2020-10-01 06:52] LABS: Vit B1(Thiamine) 43 ug/L (38-122)
[2020-10-03 17:09] LABS: Selenium 97 mcg/L (63-160)
== END ==
LOC: BARWHC3 13:15
PROVIDERS: ATTEND Surgery Plastic and Reconstructive Surgery
DX: E66.01 Morbid (severe) obesity due to excess calories (principal); F32.9 Major depressive disorder, single episode, unspecified; F41.9 Anxiety disorder, unspecified; K21.9 Gastro-esophageal reflux disease without esophagitis; Z98.84 Bariatric surgery status; Z68.36 Body mass index [BMI] 36.0-36.9, adult; Z71.3 Dietary counseling and surveillance; Z88.1 Allergy status to other antibiotic agents
CPT/HCPCS: 80053; 80061; 82306; 82525; 82607; 82728; 82746; 83036; 83540; 83550; 83735; 83970; 84100; 84134; 84255; 84425; 84443; 84590; 84630; 85027; 85610; 85730; 99211

== ENCOUNTER → 2020-11-24 | Outpatient (CLI) | payer BC ==
[2020-11-24 13:40] VITALS: BP 124/81; PULSE 99; RESP 18; TEMP 98.1; BMI 33.0
--- NOTE | 2020-11-24 14:01 | P.PN ---
Subjective Progress Note Date: 11/24/20 DATE OF SERVICE: 11/24/2020 CHIEF COMPLAINT: Status post sleeve gastrectomy HISTORY OF PRESENT ILLNESS: Carolin Mir is a 30-year-old female status post sleeve gastrectomy, 09/06/2020. She is less than 3 months out. She has lost more weight. She has lost over 60 pounds. She denies gastroesophageal reflux disease. She is still on omeprazole. She reports eating 100 grams daily. She reports occasional constipation. Her goal is to get to 200 pounds. She reports more abdominal skin at her pannus. She has occassional skin irritation of her pannus. At height of 5 feet 8 inches, her ideal body weight is 163 pounds. Highest 280 pounds, BMI 42.7. She comes in 216 pounds from 241 pounds, 2 months ago. She has lost 25 pounds in 2 months. Her body mass index is 33.0. Lifetime weight loss of 63 pounds. Percent lifetime weight loss of 54 %. She is 54 pounds overweight. PHYSICAL EXAM: VITAL SIGNS: Height 5 foot 8 inches, weight 216 pounds. BMI 33.0 Vital Signs Temp 98.1 F 11/24/20 13:38 Pulse 99 11/24/20 13:38 Resp 18 11/24/20 13:38 BP 124/81 11/24/20 13:38 Pulse Ox GENERAL: Well-developed in no acute distress. HEENT: No scleral icterus. Extraocular movements grossly intact. Hears conversational speech. No nasal drainage. NECK: Supple without lymphadenopathy. CHEST: Nonlabored respirations with equal bilateral excursions. CARDIOVASCULAR: Distal 2+ pulses. Regular rate and rhythm. ABDOMEN: Obese, soft, nontender. No hernia. Panniculitis present. MUSCULOSKELETAL: No clubbing, cyanosis. NEURO: No focal or lateralizing signs. Cranial nerves 2 through 12 grossly within normal limits. PSYCH: Appropriate affect. Alert and oriented to person, place and time. SKIN: Good skin turgor. Well perfused. LABS: Potassium low 2.9. Liver enzymes are elevated. TSH low ASSESSMENT: 1. Morbid obesity due to excess calories 2. Body mass index of 42.7 initial to 33.0 3. Anxiety 4. Depressive disorder 5. Gastroesophageal reflux disease 6. Status post sleeve gastrectomy 7. Dietary surveillance and counseling. 8. Constipation. 9. Panniculitis 10. Hypokalemia 11. Elevated liver enzymes PLAN: 1. She is doing very well with eating 100 grams daily. 2. She reports constipation. Recommend probiotics 40 billion units daily and Fiber one bran cereal get over 20+ grams fiber daily. 3. Recommend bariatric labs today. 4. She reports more pannus. Recommend Nystatin powder prescribed. 5. Recommend decrease and taper Omeprazole. 6. Increase potassium rich foods. 7. For elevated liver enzymes, repeat labs. Objective - Vital Signs Vital signs: Vital Signs Temp 98.1 F 11/24/20 13:38 Pulse 99 11/24/20 13:38 Resp 18 11/24/20 13:38 BP 124/81 11/24/20 13:38 Pulse Ox Intake & Output 11/23/20 11/24/20 11/24/20 18:59 06:59 18:59 Weight 98.43 kg - Labs CBC & Chem 7: 11/24/20 14:43 11/24/20 14:43
[2020-11-24 15:31] LABS: HCT 41.6 % (34.0-46.0); HGB 13.7 gm/dL (11.4-16.0); MCH 30.3 pg (25.0-35.0); MCHC 32.9 g/dL (31.0-37.0); Mean Platelet Volume 9.7; Platelet Count 245 k/uL (150-450); RBC 4.53 m/uL (3.80-5.40); RDW 13.5 % (11.5-15.5); WBC 8.8 k/uL (3.8-10.6)
[2020-11-24 15:33] LABS: MCV 91.9 fL (80.0-100.0)
[2020-11-25 04:43] LABS: INR 1.02 (0.90-1.11); Partial Thromboplastin Time 31.2 sec (23.5-31.0); Prothrombin Time 11.1 sec (9.9-11.9)
[2020-11-25 06:28] LABS: % Iron Saturation 19.29 (12.00-45.00); African American GFR (CKD) 139.8 (60.0-200.0); Albumin 4.8 g/dL (3.80-4.90); Albumin/Globulin Ratio 1.92 (1.60-3.17); Anion Gap 10.8 mmol/L (4.00-12.00); BUN/Creat Ratio 21.67 Ratio (12.00-20.00); Calcium 9.8 mg/dL (8.7-10.3); Carbon Dioxide 25.2 mmol/L (21.6-31.8); Chol/HDL Ratio 3.74; Globulin 2.5 g/dL (1.6-3.3); LDL Cholesterol,Calculated 83.2 mg/dL (0.0-131.0); Magnesium 2.3 mg/dL (1.5-2.4); Non-African American GFR(CKD) 120.6 (60.0-200.0); Potassium 3.9 mmol/L (3.5-5.5); Total Bilirubin 0.4 mg/dL (0.3-1.2); Total Protein 7.3 g/dL (6.2-8.2); VLDL Calculation 23.8 mg/dL (5.00-40.00)
[2020-11-25 06:42] LABS: Ferritin 54.8 ng/mL (10.0-291.0)
[2020-11-25 09:09] LABS: Folate, Serum 14.6 ng/mL
[2020-11-25 12:13] LABS: Zinc, Serum 76 ug/dL (60-130)
[2020-11-26 06:23] LABS: Vitamin A 50 ug/dL (38-106)
[2020-11-26 13:11] LABS: Vit B1(Thiamine) 83 ug/L (38-122)
[2020-11-30 18:56] LABS: Selenium 95 mcg/L (63-160)
== END ==
LOC: BARWHC3 12:44
PROVIDERS: ATTEND Surgery Plastic and Reconstructive Surgery
DX: E66.01 Morbid (severe) obesity due to excess calories (principal); E87.6 Hypokalemia; F32.9 Major depressive disorder, single episode, unspecified; F41.9 Anxiety disorder, unspecified; K21.9 Gastro-esophageal reflux disease without esophagitis; K59.00 Constipation, unspecified; R94.5 Abnormal results of liver function studies; M79.3 Panniculitis, unspecified; Z98.84 Bariatric surgery status; Z71.3 Dietary counseling and surveillance; Z68.33 Body mass index [BMI] 33.0-33.9, adult; Z88.1 Allergy status to other antibiotic agents
CPT/HCPCS: 36415; 80053; 80061; 82306; 82525; 82607; 82728; 82746; 83036; 83540; 83550; 83735; 83970; 84100; 84134; 84255; 84425; 84443; 84590; 84630; 85027; 85610; 85730; 99211

== ENCOUNTER → 2021-03-09 | Outpatient (CLI) | payer BC ==
[2021-03-09 14:40] LABS: INR 0.9 (<1.2); Partial Thromboplastin Time 25.3 sec (22.0-30.0); Prothrombin Time 9.9 sec (9.0-12.0)
[2021-03-09 21:36] LABS: HCT 38.5 % (37.2-46.3); HGB 12.3 g/dL (12.0-15.0); MCH 29.7 pg (27.0-32.0); MCHC 31.9 g/dL (32.0-37.0); Mean Platelet Volume 11.6 fL (9.5-12.2); Platelet Count 264 X 10*3/uL (140-440); RBC 4.14 X 10*6/uL (4.10-5.20); RDW 12.8 % (11.5-14.5); WBC 9.81 X 10*3/uL (4.50-10.00)
[2021-03-10 08:05] LABS: Prealbumin 20.9 mg/dL (18.0-42.0)
[2021-03-10 08:06] LABS: % Iron Saturation 22.11 (12.00-45.00); ALT 18 U/L (8-44); AST 18 U/L (13-35); African American GFR (CKD) 148.4 (60.0-200.0); Albumin 4.5 g/dL (3.8-4.9); Albumin/Globulin Ratio 2.05 (1.60-3.17); Alkaline Phosphatase 88 U/L (41-126); Blood Urea Nitrogen 10.9 mg/dL (9.0-27.0); Calcium 9.1 mg/dL (8.7-10.3); Carbon Dioxide 23.8 mmol/L (21.6-31.8); Chloride 103 mmol/L (96-109); Chol/HDL Ratio 2.92 Ratio; Ferritin 44.2 ng/mL (10.0-291.0); Globulin 2.2 g/dL (1.6-3.3); Glucose 97 mg/dL (70-110); Iron 72 ug/dL (50-170); LDL Cholesterol,Calculated 60.4 mg/dL (0.0-131.0); Magnesium 2.2 mg/dL (1.5-2.4); Non-African American GFR(CKD) 128.1 (60.0-200.0); Phosphorus 3.4 mg/dL (2.4-5.1); Potassium 3.8 mmol/L (3.5-5.5); Sodium 141 mmol/L (135-145); Total Bilirubin <0.20 mg/dL (0.30-1.20); Total Iron Binding Capacity 323 ug/dL (228-460); Total Protein 6.7 g/dL (6.2-8.2)
[2021-03-10 14:10] LABS: Zinc, Serum 58 ug/dL (60-130)
[2021-03-11 06:23] LABS: Vitamin A 37 ug/dL (38-106)
[2021-03-11 06:28] LABS: Vit B1(Thiamine) 75 ug/L (38-122)
== END | disposition home or self-care (01) ==
LOC: LABWHC1 13:42
PROVIDERS: ATTEND Surgery Plastic and Reconstructive Surgery
DX: E66.01 Morbid (severe) obesity due to excess calories (principal)
CPT/HCPCS: 36415; 80053; 80061; 82306; 82525; 82607; 82728; 82746; 83036; 83540; 83550; 83735; 83970; 84100; 84134; 84255; 84425; 84443; 84590; 84630; 85027; 85610; 85730

== ENCOUNTER → 2021-07-06 | Outpatient (CLI) | payer BC ==
[2021-07-06 13:49] VITALS: BP 126/83; PULSE 102; RESP 16; TEMP 98.5; BMI 32.6
[2021-07-06 14:00] LABS: INR 0.9 (<1.2); Partial Thromboplastin Time 25.3 sec (22.0-30.0); Prothrombin Time 9.9 sec (9.0-12.0)
--- NOTE | 2021-07-06 14:08 | P.BASOAP ---
Subjective Progress Note Date: 07/06/21 DATE OF SERVICE: 07/06/2021 CHIEF COMPLAINT: Status post sleeve gastrectomy HISTORY OF PRESENT ILLNESS: Carolin Mir is a 30-year-old female status post sleeve gastrectomy, 09/06/2020. She is 10 months out. She has gained weight. She is eating popcorn. She is not using a food diary journal. No heartburn. No abdominal pain. She comes in with panniculitis. Her personal goal is 180 pounds. At height of 5 feet 8 inches, her ideal body weight is 163 pounds. Highest 280 pounds, BMI 42.7. She comes in 215 pounds from 201 pounds, 4 months ago. She has gained 14 pounds in 4 months. Her body mass index is 32.7. Lifetime weight loss of 65 pounds. Percent lifetime weight loss of 56 %. She is 52 pounds overweight. PHYSICAL EXAM: VITAL SIGNS: Height 5 foot 8 inches, weight 215 pounds. BMI 32.7 Vital Signs Temp 98.5 F 07/06/21 13:46 Pulse 102 H 07/06/21 13:46 Resp 16 07/06/21 13:46 BP 126/83 07/06/21 13:46 Pulse Ox GENERAL: Well-developed in no acute distress. HEENT: No scleral icterus. Extraocular movements grossly intact. Hears conversational speech. No nasal drainage. NECK: Supple without lymphadenopathy. CHEST: Nonlabored respirations with equal bilateral excursions. CARDIOVASCULAR: Distal 2+ pulses. Tachycardic. ABDOMEN: Obese, soft, nontender. No hernia. MUSCULOSKELETAL: No clubbing, cyanosis. NEURO: No focal or lateralizing signs. Cranial nerves 2 through 12 grossly within normal limits. PSYCH: Appropriate affect. Alert and oriented to person, place and time. SKIN: Good skin turgor. Well perfused. LABS: Reviewed. Triglycerides elevated. Vitamin A low. Zinc low. TSH low. ASSESSMENT: 1. Morbid obesity due to excess calories 2. Body mass index of 42.7 to 32.7 3. Anxiety 4. Depressive disorder 5. Gastroesophageal reflux disease 6. Status post sleeve gastrectomy 7. Dietary surveillance and counseling. 8. Constipation. 9. Panniculitis 10. Hypokalemia 11. Elevated liver enzymes 12. Secondary hyperparathyroidism 13. Hyperthyroidism 14. Elevated liver enzymes 15. Persistent tachycardia 16. Vitamin A deficiency 17. Zinc deficiency PLAN: 1. She needs a food diary journal as she is eating high carbohydrate foods. 2. Recommend bariatric labs. 3. She comes in with panniculitis. 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 4. Check TSH. Objective - Vital Signs Vital signs: Vital Signs Temp 98.5 F 07/06/21 13:46 Pulse 102 H 07/06/21 13:46 Resp 16 07/06/21 13:46 BP 126/83 07/06/21 13:46 Pulse Ox Intake & Output 07/05/21 07/06/21 07/06/21 18:59 06:59 18:59 Weight 97.522 kg - Labs CBC & Chem 7: 07/06/21 13:22 07/06/21 13:22 Assessment/Plan Plan: Date: 07/06/21 Initial Weight: 124.738 kg Initial BMI: 41.8 Current Weight: 97.522 kg Current BMI: 32.6 Type of Surgery: Vertical Sleeve Gastrectomy Total Volume in Band: Previous Volume: Volume Removed: Volume Added: Band Size:
[2021-07-06 18:44] LABS: % Iron Saturation 25.03 (12.00-45.00); ALT 16 U/L (8-44); AST 16 U/L (13-35); African American GFR (CKD) 149.6 (60.0-200.0); Albumin 4.4 g/dL (3.8-4.9); Albumin/Globulin Ratio 1.94 (1.60-3.17); Alkaline Phosphatase 94 U/L (41-126); BUN/Creat Ratio 23.57 Ratio (12.00-20.00); Blood Urea Nitrogen 11.5 mg/dL (9.0-27.0); Calcium 9.2 mg/dL (8.7-10.3); Carbon Dioxide 23.3 mmol/L (20.0-27.5); Chloride 100 mmol/L (96-109); Ferritin 23.1 ng/mL (10.0-291.0); Globulin 2.3 g/dL (1.6-3.3); Glucose 116 mg/dL (70-110); Iron 89 ug/dL (50-170); Non-African American GFR(CKD) 129.1 (60.0-200.0); Phosphorus 3.8 mg/dL (2.4-5.1); Potassium 3.9 mmol/L (3.5-5.5); Sodium 138 mmol/L (135-145); Total Bilirubin <0.15 mg/dL (0.30-1.20); Total Iron Binding Capacity 356 ug/dL (228-460); Total Protein 6.7 g/dL (6.2-8.2)
[2021-07-06 18:53] LABS: LDL Cholesterol,Calculated 45.9 mg/dL (0.0-131.0); Prealbumin 24.1 mg/dL (18.0-42.0)
[2021-07-06 18:56] LABS: HCT 39.1 % (37.2-46.3); HGB 12.6 g/dL (12.0-15.0); MCH 29.8 pg (27.0-32.0); MCHC 32.2 g/dL (32.0-37.0); MCV 92.4 fL (80.0-97.0); Mean Platelet Volume 10.9 fL (9.5-12.2); NRBC Per 100 WBC 0 /100 WBCS (0.0-0.0); Platelet Count 290 X 10*3/uL (140-440); RBC 4.23 X 10*6/uL (4.10-5.20); RDW 12.8 % (11.5-14.5); WBC 11.18 X 10*3/uL (4.50-10.00)
[2021-07-07 12:59] LABS: Zinc, Serum 55 ug/dL (60-130)
[2021-07-08 08:32] LABS: Vitamin A 48 ug/dL (38-106)
[2021-07-08 14:34] LABS: Vit B1(Thiamine) 79 ug/L (38-122)
[2021-07-12 14:51] LABS: Selenium 118 mcg/L (63-160)
== END ==
LOC: BARWHC3 13:04
PROVIDERS: ATTEND Surgery Plastic and Reconstructive Surgery
DX: E66.01 Morbid (severe) obesity due to excess calories (principal); F41.9 Anxiety disorder, unspecified; F32.A Depression, unspecified; K21.9 Gastro-esophageal reflux disease without esophagitis; K59.00 Constipation, unspecified; M79.3 Panniculitis, unspecified; E87.6 Hypokalemia; R74.01 Elevation of levels of liver transaminase levels; E21.1 Secondary hyperparathyroidism, not elsewhere classified; R00.0 Tachycardia, unspecified; E50.9 Vitamin A deficiency, unspecified; E60 Dietary zinc deficiency; E89.1 Postprocedural hypoinsulinemia; D50.8 Other iron deficiency anemias; K91.2 Postsurgical malabsorption, not elsewhere classified; E44.0 Moderate protein-calorie malnutrition; E45 Retarded development following protein-calorie malnutrition; E55.9 Vitamin D deficiency, unspecified; K74.1 Hepatic sclerosis; N19 Unspecified kidney failure; K50.90 Crohn's disease, unspecified, without complications; E46 Unspecified protein-calorie malnutrition; Z71.3 Dietary counseling and surveillance; Z68.32 Body mass index [BMI] 32.0-32.9, adult; Z98.84 Bariatric surgery status; Z88.3 Allergy status to other anti-infective agents
CPT/HCPCS: 80053; 80061; 82306; 82525; 82607; 82728; 82746; 83036; 83540; 83550; 83735; 83970; 84100; 84134; 84255; 84425; 84443; 84590; 84630; 85027; 85610; 85730; 99211